=== PATIENT | female | born 1975 | race African-American/Black ===

== ENCOUNTER 2017-06-11 15:27 | Emergency (ER) | payer OTHER ==
[~2017-06-11] VITALS: Ht 160 cm; Wt 68.2 kg
[2017-06-11] MEDS ORDERED: CETI-290 PO (15:51)
[2017-06-11 16:01] VITALS: BP 110/78
== END 2017-06-11 16:33 | disposition home or self-care (01) ==
LOC: EMS 15:29
DX: J32.0 Chronic maxillary sinusitis (principal)
CPT/HCPCS: 99283

== ENCOUNTER 2018-08-01 11:16 | Emergency (ER) | payer OTHER ==
[~2018-08-01] VITALS: Ht 160 cm; Wt 65.0 kg
[~2018-08-01 11:16] MED LIST: CETI-290 PO
[2018-08-01] MEDS ORDERED: SUMA25TA9 PO (11:29)
[2018-08-01] MEDS ORDERED: ONDANSETRON HCL 4 MG TABLET PO ONE (12:15)
[2018-08-01] MEDS ORDERED: KETOROLAC TROMETHAMINE 60 MG/2 ML VIAL IM ONE (12:15)
[2018-08-01 13:43] VITALS: BP 144/79
== END 2018-08-01 13:55 | disposition home or self-care (01) ==
LOC: EMS 11:17
DX: G43.909 Migraine, unspecified, not intractable, without status migrainosus (principal); N39.0 Urinary tract infection, site not specified; R03.0 Elevated blood-pressure reading, without diagnosis of hypertension; F17.210 Nicotine dependence, cigarettes, uncomplicated; Z98.890 Other specified postprocedural states; Z79.899 Other long term (current) drug therapy; Z88.8 Allergy status to other drugs, medicaments and biological substances
CPT/HCPCS: 96372; 99283; J1885; Q0162